=== PATIENT | male | born 1995 | race Caucasian/White ===

== ENCOUNTER 2022-09-08 11:55 | Outpatient (CLI) | payer OTHER ==
[2022-09-08 12:33] LABS: Hemoglobin 14.9 g/dL (13.5-17.5); Mean Corpuscular HGB CONC 33.9 g/dL (32.0-36.0); Mean Corpuscular Hemoglobin 28.1 pg (27.0-33.0); Mean Platelet Volume 9.8 fl (7.4-10.4); Platelet Count 241 10x3/uL (150-450); RBC Distribution Width 11.9 % (11.5-14.5)
[2022-09-08 12:57] LABS: Anion Gap 13 mmol/L (10-20); BUN (Urea Nitrogen) 19 mg/dL (8.9-20.6); Calc. Creatinine Clearance 0 mL/min (70-130); Calcium 9.7 mg/dL (7.8-10.44); Carbon Dioxide 27 mmol/L (22-29); Chloride 103 mmol/L (98-107); Estimated GFR 98; Glucose 88 mg/dL (70-105); Potassium 4.3 mmol/L (3.5-5.1); Sodium 139 mmol/L (136-145)
== END 2022-09-08 11:56 | disposition home or self-care (01) ==
LOC: CSHLAB 11:55
PROVIDERS: ATTEND Orthopaedic Surgery
DX: Z01.812 Encounter for preprocedural laboratory examination (principal); S83.512A Sprain of anterior cruciate ligament of left knee, initial encounter
CPT/HCPCS: 80048; 82306; 85027

== ENCOUNTER 2022-09-11 11:48 | Day surgery (SDC) | payer OTHER ==
[2022-09-08 12:22] VITALS: BMI 26.6
[2022-09-11] MEDS ORDERED: Acetaminophen 325 MG TAB ONE (12:03)
[2022-09-11] MEDS ORDERED: Ketorolac Tromethamine 30 MG/ML VIAL ONE (12:03)
[2022-09-11] MEDS ORDERED: Gabapentin 300 MG CAP ONE (12:04)
[2022-09-11] MEDS ORDERED: Ropivacaine 0.5% HCl/PF (150 MG/30 ML VIAL) ONE (12:28)
[2022-09-11] MEDS ORDERED: Midazolam HCl 2 mg/2 ml Vial ONE (12:28)
[2022-09-11] MEDS ORDERED: Fentanyl 100 MCG/2 ML VIAL ONE ×3 (12:29→15:05)
[2022-09-11] MEDS ORDERED: Lidocaine 1% PF 5 ML VIAL ONE ×2 (12:29→12:52)
[2022-09-11] MEDS ORDERED: PROPOFOL 20 ML ONE ×2 (12:52→13:31)
[2022-09-11] MEDS ORDERED: Ondansetron PF 4 MG/2 ML Vial ONE (12:52)
[2022-09-11] MEDS ORDERED: Dexamethasone 4 mg/ml Vial ONE (12:52)
[2022-09-11] MEDS ORDERED: Bupivacaine/Epinephrine 0.25% 30 ML VIAL ONE (12:53)
[2022-09-11] MEDS ORDERED: EPINEPHrine 1 MG/10 ML Abboject SYRINGE ONE ×2 (12:53→12:59)
[2022-09-11] MEDS ORDERED: EPINEPHrine 1 MG/ML AMP ONE ×3 (12:56→12:58)
[2022-09-11] MEDS ORDERED: CEFAZOLIN 2 GM VIAL ONE (13:11)
[2022-09-11] MEDS ORDERED: Tranexamic Acid 1,000 MG/10 ML VIAL ONE (13:27)
[2022-09-11] MEDS ORDERED: PHENYLEPHRINE-NS 100 MCG/ML 10 ML SYRINGE ONE (13:57)
[2022-09-11] MEDS ORDERED: Vancomycin 1 GM VIAL ONE (14:10)
== END 2022-09-11 16:20 | disposition home or self-care (01) ==
LOC: CSHSDC 11:48
PROVIDERS: ATTEND Orthopaedic Surgery
PROC: 0YQG0ZZ Repair Left Knee Region, Open Approach (ICD-10-PCS; principal; 2022-09-11)
DX: S83.512A Sprain of anterior cruciate ligament of left knee, initial encounter (principal); X58.XXXA Exposure to other specified factors, initial encounter
CPT/HCPCS: C1713; J0171; J1100; J1885; J2250; J2405; J2704; J2795; J3010; J3370